=== PATIENT | female | born 2000 | race Caucasian/White ===

== ENCOUNTER 2020-12-21 09:09 | Emergency (ER) | payer OTHER ==
[~2020-12-21 09:09] MED LIST: ACETAMINOPHEN500 M1 PO; ALLEGRA ALLERG180 MG PO; FLONASE ALLER15.8 ML; IBUPROFEN400 MG PO; LEVALBUTEROL TA15 GM INH; MELATIN3 MG PO; SINGULAIR10 MG PO
[2020-12-21] MEDS ORDERED: PREDNISONE 20MG20 MG PO (11:11)
== END 2020-12-21 11:20 | disposition home or self-care (01) ==
LOC: FER 09:09
DX: R23.1 Pallor (principal); R61 Generalized hyperhidrosis; T50.B95A Adverse effect of other viral vaccines, initial encounter
CPT/HCPCS: 99283